=== PATIENT | male | born 2000 ===

== ENCOUNTER 2019-11-18 01:40 | Emergency (ER) ==
--- NOTE | 2019-11-18 09:09 | RAD ---
PORTABLE CHEST: Date: 11/18/19 HISTORY: Cough and fever. FINDINGS: Heart size and mediastinum are within normal limits. Lungs are clear of infiltrates. No significant b lane findings. IMPRESSION: No active intrathoracic disease. POS: OFF
== END 2019-11-18 02:45 | disposition home or self-care (01) ==
LOC: ERS 01:40
DX: J18.9 Pneumonia, unspecified organism (principal)
CPT/HCPCS: 71045